=== PATIENT | female | born 1995 | race Caucasian/White ===

== ENCOUNTER 2023-02-28 10:57 | Outpatient (CLI) | payer OTHER, SELFPAY ==
[2023-02-28 12:01] LABS: Basophils Percent Auto 0.3 % (0.2-1.2); Eosinophils Absolute Auto 0.1 K/mm3 (0-0.3); Eosinophils Percent Auto 0.9 % (0-4.4); Hematocrit 40.8 % (37.0-47.0); Hemoglobin 13.8 g/dL (12.0-15.0); Immature Granulocyte Absolute 0.02 K/mm3 (0.00-0.031); Immature Granulocyte Percent A 0.2 % (0-0.5); Lymphocytes Absolute Auto 2.83 K/mm3 (0.9-3.2); Lymphocytes Percent Auto 30.7 % (18.3-44.2); Mean Corpuscular HGB Conc 33.8 g/dl (32-36); Mean Corpuscular Hemoglobin 30.6 pg (26-34); Mean Corpuscular Volume 90.5 fl (80-100); Mean Platelet Volume 11.1 fl (7.4-10.4); Monocytes Absolute Auto 0.5 K/mm3 (0.1-0.6); Neutrophils Absolute Auto 5.8 K/mm3 (1.3-6.7); Neutrophils Percent Auto 62.9 % (45.5-73.1); Platelet Count Result 334 k/mm3 (150-375); Red Blood Count 4.51 M/mm3 (4.2-5.4); Red Cell Distribution Width 12.6 % (11.5-14.5); White Blood Count 9.2 K/mm3 (4.5-10.0)
[2023-02-28 12:40] LABS: HIV 1/2 Ab P24 Ag Result Negative (Negative)
[2023-02-28 12:50] LABS: Hepatitis B Surface Antigen Negative (Negative); Rubella IgG Antibody 4.5 IU/ML
[2023-03-01 07:24] LABS: Rapid Plasma Reagin Non-Reactive (NonReactive)
[2023-03-04 10:51] LABS: CMV IgG Antibody <0.60 U/mL (<0.60)
== END 2023-02-28 10:58 | disposition home or self-care (01) ==
LOC: ANHLAB 10:59
PROVIDERS: PCP Internal Medicine; Visit Provider Student in an Organized Health Care Education/Training Program
DX: N94.89 Other specified conditions associated with female genital organs and menstrual cycle (principal)
CPT/HCPCS: 36415; 84702; 85025; 86592; 86644; 86703; 86747; 86762; 86787; 86850; 86900; 86901; 87086; 87088; 87340; G0432

== ENCOUNTER 2023-04-30 08:39 | Outpatient (NON) | payer OTHER, SELFPAY ==
[2023-04-30 09:15] LABS: Total Protein Urine 24 Hr 280 mg/24hr (28-141); Total Protein Urine Random 14 mg/dL; Total Volume 24 Hour Urine 2000 ml
== END 2023-04-30 08:40 | disposition home or self-care (01) ==
LOC: ANHLAB 08:40
PROVIDERS: PCP Internal Medicine; Visit Provider Obstetrics & Gynecology
DX: O13.9 Gestational [pregnancy-induced] hypertension without significant proteinuria, unspecified trimester (principal); Z3A.00 Weeks of gestation of pregnancy not specified
CPT/HCPCS: 81050; 84156

== ENCOUNTER 2023-07-31 09:48 | Outpatient (CLI) | payer OTHER, SELFPAY ==
[2023-07-31 11:33] LABS: Basophils Percent Auto 0.2 % (0.2-1.2); Eosinophils Absolute Auto 0.1 K/mm3 (0-0.3); Eosinophils Percent Auto 0.8 % (0-4.4); Hematocrit 38.8 % (37.0-47.0); Hemoglobin 13.1 g/dL (12.0-15.0); Immature Granulocyte Absolute 0.03 K/mm3 (0.00-0.031); Immature Granulocyte Percent A 0.2 % (0-0.5); Lymphocytes Absolute Auto 3.07 K/mm3 (0.9-3.2); Lymphocytes Percent Auto 23.8 % (18.3-44.2); Mean Corpuscular HGB Conc 33.8 g/dl (32-36); Mean Corpuscular Hemoglobin 29.8 pg (26-34); Mean Corpuscular Volume 88.4 fl (80-100); Mean Platelet Volume 11.1 fl (7.4-10.4); Monocytes Absolute Auto 0.5 K/mm3 (0.1-0.6); Monocytes Percent Auto 3.6 % (2.6-8.5); Neutrophils Absolute Auto 9.2 K/mm3 (1.3-6.7); Neutrophils Percent Auto 71.4 % (45.5-73.1); Platelet Count Result 332 k/mm3 (150-375); Red Blood Count 4.39 M/mm3 (4.2-5.4); Red Cell Distribution Width 13.8 % (11.5-14.5); White Blood Count 12.9 K/mm3 (4.5-10.0)
[2023-07-31 11:44] LABS: Glucose 1 Hour PP 50gm Dose 115 mg/dL
[2023-07-31 12:24] LABS: HIV 1/2 Ab P24 Ag Result Negative (Negative)
== END 2023-07-31 09:49 | disposition home or self-care (01) ==
PROVIDERS: PCP Internal Medicine; Visit Provider Student in an Organized Health Care Education/Training Program
DX: Z34.90 Encounter for supervision of normal pregnancy, unspecified, unspecified trimester (principal)
CPT/HCPCS: 36415; 82947; 85025; 86703; G0432

== ENCOUNTER 2023-07-31 13:12 | Outpatient (CLI) | payer OTHER, SELFPAY ==
[2023-07-31 14:00] VITALS: BP 144/82; PULSE 94
[2023-07-31 14:00] LABS: Basophils Percent Auto 0.1 % (0.2-1.2); Eosinophils Absolute Auto 0.1 K/mm3 (0-0.3); Eosinophils Percent Auto 0.5 % (0-4.4); Hematocrit 38.3 % (37.0-47.0); Hemoglobin 12.8 g/dL (12.0-15.0); Immature Granulocyte Absolute 0.05 K/mm3 (0.00-0.031); Immature Granulocyte Percent A 0.4 % (0-0.5); Lymphocytes Absolute Auto 2.64 K/mm3 (0.9-3.2); Lymphocytes Percent Auto 20.5 % (18.3-44.2); Mean Corpuscular HGB Conc 33.4 g/dl (32-36); Mean Corpuscular Hemoglobin 29.8 pg (26-34); Mean Corpuscular Volume 89.1 fl (80-100); Monocytes Absolute Auto 0.4 K/mm3 (0.1-0.6); Monocytes Percent Auto 3.3 % (2.6-8.5); Neutrophils Absolute Auto 9.7 K/mm3 (1.3-6.7); Neutrophils Percent Auto 75.2 % (45.5-73.1); Platelet Count Result 351 k/mm3 (150-375); Red Cell Distribution Width 13.7 % (11.5-14.5); White Blood Count 12.9 K/mm3 (4.5-10.0)
[2023-07-31 14:01] LABS: Creatinine Urine 30.1 mg/dL; Total Protein Urine Random 12 mg/dL
[2023-07-31 14:12] LABS: Alanine Aminotransferase 20 U/L (6-35); Albumin Level 3.8 g/dL (3.5-5.1); Alkaline Phosphatase 87 U/L (38-126); Anion Gap 7 mmol/L (8-16); Aspartate Amino Transferase 24 U/L (14-36); Bilirubin,Total 0.3 mg/dL (0.2-1.3); Blood Urea Nitrogen 8 mg/dL (7-17); Calcium 9.3 mg/dL (8.4-10.2); Carbon Dioxide 20 mmol/L (22-30); Chloride 107 mmol/L (98-107); Estimated Glomerular Filt Rate > 60; Glucose 103 mg/dL (65-110); Potassium 4.1 mmol/L (3.4-5.0); Sodium 134 mmol/L (137-145)
[2023-07-31 14:15] VITALS: BP 143/81; PULSE 90
[2023-07-31 14:17] LABS: Appearance Urine Clear (Clear); Bacteria Urine None Seen /hpf; Bilirubin Urine Negative (Negative); Blood Urine Negative (Negative); Color Urine Yellow (Yellow); Glucose Urine UA Negative (Negative); Ketones Urine Negative (Negative); Leukocyte Esterase Ur Trace LEU/UL (Negative); Need Manual Microscopic Reviewed; Nitrate Urine Negative (Negative); Non Pathogenic Casts 0-2; Protein Urine Negative (Negative); RBC Urine 0-2 /hpf (0-2); Specific Grav Ur 1.005 (1.001-1.035); Squamous Epithelial Cell Urine Few /hpf (Few); Urobilinogen Urine 0.2 mg/dL (<2.0); WBC Urine 0-5 /hpf (0-3)
[2023-07-31 14:31] VITALS: BP 139/78; PULSE 87
[2023-07-31 14:34] LABS: Add Urine Microscopic? YES
[2023-07-31 14:45] VITALS: BP 144/82; PULSE 90
[2023-07-31 15:01] VITALS: BP 144/80; PULSE 85
[2023-07-31 15:10] VITALS: BP 144/82; PULSE 93; BMI 35.6
== END 2023-07-31 15:12 | disposition home or self-care (01) ==
LOC: ANHOBOP 13:30 → ANHOBPP 13:32
PROVIDERS: PCP Internal Medicine; Visit Provider Student in an Organized Health Care Education/Training Program
DX: O13.9 Gestational [pregnancy-induced] hypertension without significant proteinuria, unspecified trimester (principal)
CPT/HCPCS: 36415; 59025; 80053; 81050; 82570; 82947; 84156; 84550; 85025; 86703; 99199; G0432

== ENCOUNTER 2023-08-01 17:00 | Outpatient (CLI) | payer OTHER, SELFPAY ==
[2023-08-01 18:17] LABS: Total Volume 24 Hour Urine 2300 ml
[2023-08-01 18:18] LABS: Total Protein Urine 24 Hr 253 mg/24hr (28-141); Total Protein Urine Random 11 mg/dL
== END 2023-08-01 17:01 | disposition home or self-care (01) ==
LOC: ANHLAB 17:05
PROVIDERS: PCP Internal Medicine; Visit Provider Student in an Organized Health Care Education/Training Program
DX: O13.9 Gestational [pregnancy-induced] hypertension without significant proteinuria, unspecified trimester (principal); Z3A.00 Weeks of gestation of pregnancy not specified
CPT/HCPCS: 81050; 84156

== ENCOUNTER 2023-08-16 14:17 | Observation (INO) | payer OTHER, SELFPAY ==
[2023-08-16] VITALS (34 sets, daily range): BP systolic 95–190; BP diastolic 49–122; PULSE 65–102; RESP 20; TEMP 36.9; O2SAT 96–100; BMI 38.0
--- NOTE | 2023-08-16 14:43 | PM.IMHP ---
H&P: HPI History of Present Illness Date/Time: 08/16/23 14:43 Chief Complaint: super-imposed preeclampsia with severe features Narrative: 28-year-old G1 at 30 weeks 6 days who presents for testing. Patient found to have severe range blood pressures. Patient's is complicated by chronic hypertension on nifedipine. Patient recently ruled in for superimposed preeclampsia by urine protein creatinine ratio. Patient denies any other preeclampsia symptoms. Patient noted to have 2 severe blood pressures during NST today. She reports good movement. Denies any scotoma, right upper quadrant pain, change in swelling. Review of Systems Cardiovascular: Cardiovascular: Denies chest pain, Denies leg edema, Denies palpitations, Denies dyspnea and Denies dyspnea on exertion Respiratory: Respiratory: Denies cough, Denies dyspnea and Denies dyspnea on exertion Gastrointestinal: Gastrointestinal: Denies abdominal pain, Denies constipation, Denies diarrhea, Denies nausea and Denies vomiting Genitourinary: Genitourinary: Denies hematuria, Denies urinary frequency, Denies dysuria, Denies pelvic pain, Denies urinary incontinence and Denies vaginal discharge Neurologic: Reports system reviewed and no additional complaints, except as documented Psychiatric: Psychiatric: Reports no additional psychiatric complaints Endocrine: Endocrine: Denies palpitations PMFSH Past Medical History Medical History Gestational hypertension Suppression of menses Surgical History Surgical History H/O wisdom tooth extraction Family History Family History Grandparent Colon polyp Mother Thyroid disease Social History Social History Smoking status: Never smoker Alcohol intake: former Substance use: never Occupation/Education: occupation Sexual Orientation (if Verbalized by the Patient): Straight or Heterosexual Meds Home Medications and Allergies Home Medications Medication Instructions Recorded Confirmed Type vit no.95-ferrous tablet PO 02/26/23 08/14/23 History fumarate 28 mg-folic acid 800 mcg tablet () aspirin 81 mg tablet,delayed 81 mg PO DAILY 04/23/23 08/14/23 History release (Adult Low Dose Aspirin) nifedipine 90 mg tablet,extended 90 mg PO DAILY #30 tabs 08/14/23 08/14/23 Rx release Allergies Allergy/AdvReac Type Severity Reaction Status Date / Time Penicillins Allergy Mild Hives Verified 08/14/23 13:27 Exam Const: General: no acute distress Eyes: EOM: EOMs intact bilaterally Neck: Neck: supple Thyroid: thyroid normal Chest: Breast/axilla inspection: normal inspection of the breasts Breast/axilla palpation: normal palpation of the breasts, normal palpation of the axillae and no axillary lymphadenopathy Resp: Effort & Inspection: normal respiratory effort Auscultation: clear to auscultation bilaterally Cardio: Rate: regular rate Rhythm: regular rhythm GI: Inspection: non-distended and other (Gravid) GI Palp: Yes Soft to palpation, No Tenderness to palpation present (GI) and No Guarding due to palpation present (GI) Auscultation: normal bowel sounds : Speculum Exam - Vagina: No vaginal bleeding OB/external & speculum: external exam normal; No vaginal bleeding Skin: General skin exam: normal color and no rashes or lesions noted Neuro: Cognition (Neuro): normal cognition Speech: normal speech Extrem: General: normal to inspection Psych: Mental Status: mental status grossly normal Affect: normal affect Assessment and Plan Assessment and plan (1) Supervision of high risk , unspecified, third trimester: Code(s): O09.93 - Supervision of high risk , unspecified, third trimester Status: Acute
[2023-08-16] MEDS: LABETALOL HCL INJ 100 MG/20 ML VIAL 20 MG IV PUSH (15:21)
[2023-08-16 15:31] LABS: Basophils Percent Auto 0.3 % (0.2-1.2); Eosinophils Absolute Auto 0.1 K/mm3 (0-0.3); Eosinophils Percent Auto 0.8 % (0-4.4); Hematocrit 38.2 % (37.0-47.0); Hemoglobin 12.8 g/dL (12.0-15.0); Immature Granulocyte Absolute 0.04 K/mm3 (0.00-0.031); Immature Granulocyte Percent A 0.3 % (0-0.5); Immature Platelet Fraction Pct 8.4 % (0.9-11.2); Lymphocytes Absolute Auto 3.56 K/mm3 (0.9-3.2); Mean Corpuscular HGB Conc 33.5 g/dl (32-36); Mean Corpuscular Hemoglobin 29.7 pg (26-34); Mean Corpuscular Volume 88.6 fl (80-100); Mean Platelet Volume 11.9 fl (7.4-10.4); Monocytes Absolute Auto 0.5 K/mm3 (0.1-0.6); Monocytes Percent Auto 3.7 % (2.6-8.5); Neutrophils Absolute Auto 9.4 K/mm3 (1.3-6.7); Neutrophils Percent Auto 68.9 % (45.5-73.1); Platelet Count Result 267 k/mm3 (150-375); Red Blood Count 4.31 M/mm3 (4.2-5.4); Red Cell Distribution Width 13.8 % (11.5-14.5); White Blood Count 13.7 K/mm3 (4.5-10.0)
[2023-08-16] MEDS: BETAMETHASONE SOD PHOS/ACETATE 30 MG/5 ML VIAL 12 MG IM (15:33)
[2023-08-16] MEDS: LABETALOL HCL INJ 100 MG/20 ML VIAL 40 MG IV PUSH (15:34)
[2023-08-16 15:40] LABS: Alanine Aminotransferase 19 U/L (6-35); Albumin Level 3.7 g/dL (3.5-5.1); Alkaline Phosphatase 104 U/L (38-126); Anion Gap 7 mmol/L (4-12); Aspartate Amino Transferase 26 U/L (14-36); Bilirubin,Total 0.3 mg/dL (0.2-1.3); Blood Urea Nitrogen 8 mg/dL (7-17); Calcium 9.8 mg/dL (8.4-10.2); Carbon Dioxide 21 mmol/L (22-30); Chloride 105 mmol/L (98-107); Estimated Glomerular Filt Rate > 60; Glucose 96 mg/dL (65-110); Potassium 3.7 mmol/L (3.4-5.0); Sodium 133 mmol/L (137-145); Uric Acid 6.4 mg/dL (2.5-7.5)
[2023-08-16 15:41] LABS: Creatinine Urine 59.4 mg/dL; Total Protein Urine Random 22 mg/dL; Ur Ttl Prot Creatinine Ratio 0.37 mg/mg (0-0.20)
--- NOTE | 2023-08-16 15:41 | OBADM ---
This patient, Daly Chand, admitted to the OB room OB Post 117 for observation. Patient/family oriented to hospital policies and general routines including ID bracelet, bed and alarms, visiting hours, pain management, procedures, bathroom and other care routines, personal items, smoking policy, room service/diet, and visiting hours. Patient/Family are encouraged to report perceived risks to care and to ask questions if they do not understand what they are told or what they should do.
[2023-08-16 15:49] LABS: Platelet Estimate Adequate (Adequate); Schistocytes None Seen
[2023-08-16] MEDS: LABETALOL HCL INJ 100 MG/20 ML VIAL 80 MG IV PUSH (15:58)
[2023-08-16] MEDS: LACTATED RINGERS 1,000 ML 75 ML IV CONT (16:15)
[2023-08-16] MEDS: MAGNESIUM SULF 6 GM/WATER150ML 6 GM/150 ML BAG IVPB (16:17)
[2023-08-16] MEDS: hydrALAZINE HCL 20 MG/ML VIAL 10 MG IV PUSH (16:28)
[2023-08-16] MEDS: MAGNESIUM SULF 20GM/WATER500ML 500 ML 50 MG IV CONT (16:53)
--- NOTE | 2023-08-16 17:20 | PC.NURSE ---
[place]'s transport nurse Barney Leal and transport team here, assumed care of patient at this time.
--- NOTE | 2023-08-16 17:34 | PC.NURSE ---
Contractions from 1444 to 1500 are irregular, occasional, and not picking up per TOCO monitor. Contractions from 1500 to 1600 are irregular and occasional. Contractions from 6088-3120: Contraction frequency is 1-9 minutes. Contraction duration is 30-60 seconds. Contractions from 1700- 1712: Contraction frequency is 1-3 minutes. Contraction duration is 40-60 seconds. Contractions from 1307-7441: None picking up per TOCO.
--- NOTE | 2023-08-17 13:37 | PM.TDS ---
Transfer Discharge Sum: Prov Provider Date of admission: 08/16/23 14:17 Primary care physician: Sylvester Alexis, Admitting clinician: Tyrone De Leon MD Attending physician on admission: Tyrone De Leon Attending physician on discharge: Tyrone De Leon Anticipated date of transfer: 08/16/23 Receiving physician/facility: Dr. Landeros [facility] DS: Admitting Diagnosis Discharge Date 08/16/23 Admitting Diagnosis superimposed preeclampsia with severe features intrauterine DS: Discharge Diagnosis Discharge Diagnosis (1) Chronic hypertension affecting : Code(s): O10.919 - Unspecified pre-existing hypertension complicating , unspecified trimester Status: Acute (2) Supervision of high risk , unspecified, third trimester: Code(s): O09.93 - Supervision of high risk , unspecified, third trimester Status: Acute (3) Pre-eclampsia superimposed on chronic hypertension, antepartum: Code(s): O11.9 - Pre-existing hypertension with pre-eclampsia, unspecified trimester Status: Acute Transfer Discharge Sum: Med Medications Active and Home Medications: Home Medications vit no.95-ferrous fumarate 28 mg-folic acid 800 mcg tablet () 1 tablet PO DAILY 02/26/23 [History Confirmed 08/16/23] aspirin 81 mg tablet,delayed release (Adult Low Dose Aspirin) 162 mg PO DAILY 04/23/23 [History Confirmed 08/16/23] nifedipine 90 mg tablet,extended release 90 mg PO DAILY #30 tabs 08/14/23 [Rx Confirmed 08/16/23] Transfer Discharge Sum: Hosp Hospital Course Hospital course: Daly Chand is a 28 year old female Time Spent with Patient Time attestation: Total time spent providing and/or coordinating transfer services: Total time spent: Less than 30 minutes Exam Const: General: comfortable and no acute distress Resp: Effort & Inspection: normal respiratory effort Auscultation: clear to auscultation bilaterally Cardio: Rate: regular rate Rhythm: regular rhythm GI: GI Palp: Yes Soft to palpation and No Tenderness to palpation present (GI) Neuro: General: gait normal Speech: normal speech Extrem: General: normal to inspection Psych: Mental Status: mental status grossly normal Affect: normal affect DS: Data Data Completed and Pending Labs on day of discharge: Labs from last 24 hours 08/16/23 08/16/23 08/16/23 15:11 15:11 15:11 WBC RBC Hgb Hct MCV MCH MCHC RDW Plt Count MPV Immature Gran % (Auto) Neut % (Auto) Lymph % (Auto) Mcintosh % (Auto) Eos % (Auto) Baso % (Auto) Lymph # (Auto) Mcintosh # (Auto) Eos # (Auto) Baso # (Auto) Abs Immat Gran (auto) Absolute Neuts (auto) Absolute Nucleated RBC Nucleated RBC % Platelet Estimate % Immature Plt Fraction Schistocytes Sodium Potassium Chloride Carbon Dioxide Anion Gap BUN Creatinine Estim Creat Clear Calc Estimated GFR Glucose Uric Acid Calcium Total Bilirubin AST ALT Alkaline Phosphatase Cancelled Total Protein Cancelled 7.0 Albumin Cancelled 3.7 U Random Total Protein 22 Urine Creatinine 59.4 Protein/Creat Ratio 2 0.37 H 08/16/23 08/16/23 08/16/23 15:11 15:11 15:11 WBC RBC Hgb Hct MCV MCH MCHC RDW Plt Count MPV Immature Gran % (Auto) Neut % (Auto) Lymph % (Auto) Mcintosh % (Auto) Eos % (Auto) Baso % (Auto) Lymph # (Auto) Mcintosh # (Auto) Eos # (Auto) Baso # (Auto) Abs Immat Gran (auto) Absolute Neuts (auto) Absolute Nucleated RBC Nucleated RBC % Platelet Estimate % Immature Plt Fraction Schistocytes Sodium Potassium Chloride Carbon Dioxide Anion Gap BUN Creatinine Estim Creat Clear Calc Estimated GFR Glucose Uric Acid Calcium Total Bilirubin
== END 2023-08-16 18:00 | disposition short-term general hospital (02) ==
PROVIDERS: Admitting Provider Student in an Organized Health Care Education/Training Program; PCP Internal Medicine; Visit Provider Student in an Organized Health Care Education/Training Program
DX: O09.93 Supervision of high risk pregnancy, unspecified, third trimester (principal); O11.3 Pre-existing hypertension with pre-eclampsia, third trimester; O10.013 Pre-existing essential hypertension complicating pregnancy, third trimester; Z3A.30 30 weeks gestation of pregnancy; Z79.82 Long term (current) use of aspirin; Z79.899 Other long term (current) drug therapy
CPT/HCPCS: 36415; 80053; 82570; 84156; 84550; 85025; 85055; 96372; 96374; 96375; 96376; G0378; G0379; J0360; J0702; J3475; J7120

== ENCOUNTER 2023-10-17 12:34 | Outpatient (CLI) | payer OTHER, SELFPAY ==
[2023-10-17 14:26] LABS: Beta HCG Quantitative < 2.39 mIU/ML
== END 2023-10-17 12:35 | disposition home or self-care (01) ==
LOC: ANHLAB 12:35
PROVIDERS: PCP Internal Medicine; Visit Provider Student in an Organized Health Care Education/Training Program
DX: N94.89 Other specified conditions associated with female genital organs and menstrual cycle (principal)
CPT/HCPCS: 36415; 84702

== ENCOUNTER 2024-11-20 10:30 | Outpatient (CLI) | payer OTHER, SELFPAY ==
--- OUTSIDE RECORDS SUMMARY | 2024-11-20 10:37 | XMS_ITS | Clinical Summary ---
Author Organization [facility] Address [address] [place] [id number] Care Team Providers Care Case Operator Name Role Phone Sylvester Alexis MD Primary Care Provider [phone] Allergies Active Allergy Reactions Criticality Noted Date Comments Penicillins Hives 05/08/2005 Medications loratadine (CLARITIN) 10 MG tablet Take 1 tablet (10 mg total) by mouth daily as needed for Allergies. Active NIFEdipine ER (ADALAT CC) 60 MG 24 hr tabletIndications :Chronic hypertension in obstetric context in first trimester (HHS/HCC) Take 1 tablet (60 mg total) by mouth daily. 90 tablet 1 3 Active 28-0.8 MG tablet Take 1 tablet by mouth daily. Active nitrofurantoin, macrocrystal-mono hydrate, (MACROBID) 100 MG capsuleIndication s:Acute cystitis without hematuria Take 1 capsule (100 mg total) by mouth 2 (two) times daily for 7 days. 14 capsule 5 10/29/19 25 Active Problems Problem Noted Date Diagnosed Date Elevated blood pressure read ing in office with diagnosis of hypertension 10/21/2024 Hypertension 02/14/2023 Overview (02/14/2023): Have not been on medication since 2018 Encounters Date Type Department Care Team Description 10/30/[address] [facility] Mult[facility]ialty Care - [address] [place] [address] Sylvester Alexis MD Follow Up Call 10/30/2024 Travel 10/21/2024 1:20 PM CDT Office Visit [place] [address] [address] [facility] [address] [place] [address] Sylvester Alexis MD Follow Up (Acute ); Urinary Problem (Thinks it may be a UTI since Sunday symptoms have been getting worse. Low back pain, uncomfortable when urinating, frequent urination ); Blood Pressure 10/21/2024 - 10/21/2024 11:59 PM CDT Hospital Encounter [facility] [address] Sylvester Alexis MD Discharge Disposition: Home or Self Care (Routine Discharge) 10/21/2024 Results Follow-Up [place] [address] [place] [address] [address] [place] [address] Sylvester Alexis MD URINALYSIS AUTO DIP, URINE BACTERIA CULTURE 10/21/2024 Travel 10/16/2024 MyChart Message Enc [place] [address] [address] [facility] [address] [place] [address] Sylvester Alexis MD Possible UTI from Last 3 Months Immunizations Immunization Administration Dates Next Due Fluzone (IIV3, Trivalent, 0.5 ML Prefilled Syrin ge) 04/15/2024 Influenza Adult (Generic) 04/24/2023 Tdap (Generic) 08/22/2023 Family History Medical History Relation Comments Cancer Maternal Grandfather Colon Relation Status Comments Maternal Grandfather Social History Tobacco Use Types Packs/Day Years Used Date Smoking Tobacco: Never Smokeless Tobacco: Never Tobacco Cessation:Counseling Given: Yes Comments:Counseled by Dr. Alexis. Alcohol Use Standard Drinks/Week Comments Yes 3.7 (1 standard drink = 0.6 oz p ure alcohol) PHQ-2 Answer Date Recorded Patient Health Questionnaire-2 Score 0 04/15/2024 Comments No Sex and Gender Information Value Date Recorded Sex Assigned at Female 2023 6:18 AM CDT Legal Sex Female 8:46 AM CDT Gender Identity Female 2023 6:18 AM CDT Sexual Orientation Straight 10/21/2024 1: 14 PM CDT Last Filed Vital Signs Vital Sign Reading Time Taken Comments Blood Pressure 140/88 10/30/2024 5:08 PM CDT Pulse 112 10/21/2024 1:14 PM CDT Temperature 36.6 C (97.9 F) 10/21/2024 1:14 PM CDT Respiratory Rate 18 10/21/2024 1:14 PM CDT Oxygen Saturation 100% 10/21/2024 1:14 PM CDT Inhaled Oxygen Concentration - - Weight 101.3 kg (223 lb 6.4 oz) 10/21/2024 1:14 PM CDT Height 167.6 cm (5' 6) 10/21/2024 1:14 PM CDT Body Mass Index 36.06 10/21/2024 1:14 PM CDT Plan of Treatment Upcoming Encounters Date Type Department Care Team (Late st Contact Info) Description 04/21/2025 7:00 AM TELEPHONE PLANT POWER OPERATOR Office Visit [facility] Mult[facility]pec[facility] Care - [place] [address] [address] [place], [place] [id number] Sylvester Alexis MD [address] [place] [address] [id number] Health Maintenance Due Date Last Done Comments Cervical Cancer Screening Pa p Smear (Age 21 to 29) Every 3 Years 1995 Cervical Cancer Screening 1995 Hepatitis B Vaccines (1 of 3 - 19+ 3-dose series) 2014 COVID-19 Vaccine ( - 2023-2 5 season) 2024 PHQ-2 (Physician [place]) 05/21/2024 04/15/2024 Annual Physical 04/15/2025 04/15/2024, 02/14/2023 DTaP, Tdap and Td Vaccines ( 2 - Td or Tdap) 08/21/2033 08/22/2023 Hepatitis C Completed 02/14/2023 HPV Vaccines Aged Out No longer eligi ble based on patient's age to complete this topic Meningococcal B Vaccine Aged Out No l onger eligible based on patient's age to complete this topic Meningococcal Vaccine Aged Out No rosario missy eligible based on patient's age to complete this topic Pneumococcal Vaccine: Pediatrics (0 to 5 Years) and At-Risk Patients (6 to 49 Years) Aged Out No longer eligible b ased on patient's age to complete this topic RSV Immunizations Under 20 Months Aged Out No longer eligible b ased on patient's age to complete this topic Procedures Procedure Name Priority Date/Time Associated Diagnosis Comments URINE BACTERIA CULTURE Routine 10/21/2024 1:24 PM CDT Dysuria URINALYSIS AUTO DIP Routine 10/21/2024 Dysuria HEPATITIS C ANTIBODY Routine 02/14/2023 10:14 AM CDT Annual physical exam General medical exam Establishing care with new doctor, encounter for Encounter for hepatitis C screening test for low risk patient from Last 3 Months or Most Recently Relevant to Health Maintenance Results * (ABNORMAL) URINE BACTERIA CULTURE (10/21/2024 1:24 PM CDT) SPEC DESCRIPTION URINE CLEAN CATCH 10/21/2024 1:24 PM CDT [facility] SPECIAL REQUESTS NO SPECIAL REQUEST 10/21/2024 1:24 PM CDT [facility] CULTURE RESULT EQUAL OR >100,000 CFU/mL ESCHERICHIA COLI, EXTENDED SPECTRUM BETA LACTAMASE TELEGRAPH INSTALLER (A) 10/25/2024 6:25 AM CDT [facility] URINE SPECIMEN OBTAINED BY CLEAN CATCH PROCEDURE / Unknown 10/21/2024 1:24 PM CDT 10/21/2024 8:50 PM CDT Narrative Organism Antibiotic Method Susceptibility Escherichia coli, extended spectrum beta lactamase international editorial producer FOSFOMYCIN PEEWEE (KB) Sensitive Escherichia coli, extended spectrum beta lactamase international editorial producer AMPICILLIN PEEWEE (VITEK) Resistant Escherichia coli, extended spectrum beta lactamase international editorial producer AMOXICILLIN/CLAVULANIC A PEEWEE (VITEK) INTERMEDIATE: Intermediate Escherichia coli, extended spectrum beta lactamase international editorial producer AZTREONAM PEEWEE (VITEK) Resistant Escherichia coli, extended spectrum beta lactamase international editorial producer CEFEPIME PEEWEE (VITEK) INTERMEDIATE: Intermediate Escherichia coli, extended spectrum beta lactamase international editorial producer CEFTRIAXONE PEEWEE (VITEK) Resistant Escherichia coli, extended spectrum beta lactamase international editorial producer CEFAZOLIN PEEWEE (VITEK) Resistant Escherichia coli, extended spectrum beta lactamase international editorial producer CIPROFLOXACIN PEEWEE (VITEK) Resistant Escherichia coli, extended spectrum beta lactamase international editorial producer ESBL PEEWEE (VITEK) POS: Resistant Escherichia coli, extended spectrum beta lactamase international editorial producer ERTAPENEM PEEWEE (VITEK) Sensitive Escherichia coli, extended spectrum beta lactamase international editorial producer NITROFURANTOIN PEEWEE (VITEK) Sensitive Escherichia coli, extended spectrum beta lactamase international editorial producer GENTAMICIN PEEWEE (VITEK) Resistant Escherichia coli, extended spectrum beta lactamase international editorial producer IMIPENEM PEEWEE (VITEK) Sensitive Escherichia coli, extended spectrum beta lactamase international editorial producer LEVOFLOXACIN PEEWEE (VITEK) Resistant Escherichia coli, extended spectrum beta lactamase international editorial producer MEROPENEM PEEWEE (VITEK) Sensitive Escherichia coli, extended spectrum beta lactamase international editorial producer PIPRACIL/TAZO PEEWEE (VITEK) Sensitive Escherichia coli, extended spectrum beta lactamase international editorial producer TRIMETH-SULFAMETH. PEEWEE (VITEK) Sensitive Escherichia coli, extended spectrum beta lactamase international editorial producer TETRACYCLINE PEEWEE (VITEK) Resistant Sylvester Alexis MD MICROBIOLOGY - GENERAL ORDERABLE S Final Result [facility] [address] [place] [address], [id number] * (ABNORMAL) URINALYSIS AUTO DIP (10/21/2024) COLOR (U) YELLOW YELLOW MG[address] [place] TRANSPARENCY CLEAR CLEAR MG-[address] [place] GLUCOSE (U) NEGATIVE NEGATIVE MG/DL [id number] [place] BILIRUBIN (U) NEGATIVE NEGATIVE MG-[address] [place] KETONES MG/DL (U) NEGATIVE NEGATIVE MG/DL [id number] [place] SPECIFIC GRAVITY (U) 1.015 1.001 - 1.035 MG-[address] [place] BLOOD (U) MODERATE (Non Hemolyzed, Intact, About 50 rbc/uL)(A) NEGATIVE MG-[address] [place] U PH 6.5 5.0 - 9.0 MG-[address] [place] PROTEIN (U) 1+ (30)(A) NEGATIVE mg/dL MG-[address] [place] UROBILINOGEN 0.2 0.2 - 1.0 EU/dL = mg/dL MG-[address] [place] NITRITES NEGATIVE NEGATIVE MG/DL MG-[address] [place] LEUKOCYTES (U) 3+ (LARGE)(A) NEGATIVE MG-[address] [place] URINE SPECIMEN OBTAINED BY CLEAN CATCH PROCEDURE / Unknown 10/21/2024 us Sylvester lAexis MD URINE ORDERABLES Final Result Performing Organization Address City/[facility]/ZIP Co de Phone Number MG-[address] [place] [address] [place] [address], [place] [phone] * HEPATITIS C ANTIBODY (02/14/2023 10:14 AM CDT) HEPATITIS C AB NON-REACTI VE NON-REACT ANTONY 02/14/2023 7:38 PM CDT [facility] Comment: ANTIBODIES TO HCV NOT DETECTED. DOES NOT EXCLUDE THE POSSIBILITY OF EXPOSURE TO HCV. 02/14/2023 10:1 4 AM CDT Sylvester Alexis MD LABORATORY Final Result Performing Organization Address City/[facility]/ZIP Co de Phone Number [facility] [address] [place] [address], [place] [phone] from Last 3 Months or Most Recently Relevant to Health Maintenance Additional Health Concerns Infection Onset Date Last Indicated ESBL - Extended Spectrum Beta-lactamase 10/22/19 25 10/21/2024 Insurance Care Teams Case Operator Relationship Specialty Start Date End Date Sylvester Alexis MD [address] [address] PCP - General INTERNAL MEDICINE 02/14/23
--- OUTSIDE RECORDS SUMMARY | 2024-11-20 10:37 | XMS_ITS | Encounter Summary ---
Author Organization [facility] Address [address] [place] [address] Care Team Providers Care Transmission And Protection Engineer Name Role Phone Sylvester Alexis MD Primary Care Provider [phone] Reason for Visit * Reason Onset Date Comments Appointment Request 10/16/2024 Encounter Details Date Type Department Care Team (Late st Contact Info) Description 10/16/2024 [place] [employer] Message Enc [facility] Mult[facility]pec[facility] Care - [place] [address] [place] [address] [address] [place] [address] [place] [address] [place] [address] [address] [place] [address] Possible UTI Social History Tobacco Use Types Packs/Day Years Used Date Smoking Tobacco: Never Smokeless Tobacco: Never Comments:Counseled by Dr. Beth rock. Alcohol Use Standard Drinks/Week Comments Yes 3.7 [...] Orientation Straight 10/21/2024 1: 14 PM CDT documented as of this encounter Progress Notes * Michelle Peres MA - 10/17/2024 7:11 AM CDT Pt declined acute appointment. documented in this encounter Plan of Treatment Upcoming Encounters Date Type Department Care Team (Late st Contact Info) Description 04/21/2025 7:00 AM PAINT STOCK CLERK Office Visit [facility] Mult[facility]pec[facility]ty [facility] [place] [address] [address] [place] [address] Sylvester Alexis MD [address] [place] [id number] documented as of this encounter Visit Diagnoses Not on filedocumented in this encounter Additional Health Concerns Infection Onset Date Last Indicated Resolved Time ESBL - Extended Spectrum Beta-lactamase 10/21/2024 0 10/21/2024 Assessment Noted Time PHQ-9 Depression Total Score: 1 04/15/20 24 9:39 AM PAINT STOCK CLERK documented as of this encounter Care Teams Transmission And Protection Engineer Relationship Specialty Start Date End Date Sylvester Alexis MD [address] [place] [id number] PCP - General INTERNAL MEDICINE 02/14/23 documented as of this encounter
--- OUTSIDE RECORDS SUMMARY | 2024-11-20 10:37 | XMS_ITS | Clinical Summary ---
Author Organization [facility] Address [address] [place] [address] Care Team Providers Care Beveler Name Role Phone Unavailable Primary Care Provider Unavailabl e Source Comments [facility],non-owned Affiliates and Associated Physician Practices is amultiple site organization consisting of ambulatory clinics and hospital sitesin [place], [place]. This disclosure is being madepursuant to the Care Everywhere program and may not contain all information available regarding this patient. Last updated 18.[facility] Allergies Active Allergy Reactions Criticality Noted Date Comments Penicillins Unknown 05/04/2023 Medications * Be aware that medications may not be up to date on this document. Alwaysverify current medications with the patient. Vit-Fe Fumarate-FA ( vitamin) 28-0.8 MG tablet Take 1 (one) tablet by mouth once daily Active aspirin (Aspirin) 81 MG chew tablet Take 2 (two) tablets by mouth once daily Active NIFEdipine CR osmotic 24hr (Adalat CC) 60 MG tablet Take 1 (one) tablet by mouth 2 times daily 60 tablet 2 4 Active ferrous sulfate 325 (65 FE) MG tablet Take 1 (one) tablet by mouth once daily after lunch 30 tablet 4 Active labetalol (Normodyne; Trandate) 200 MG tablet Take 2 (two) tablets by mouth 2 times daily 120 tablet 1 4 Active Additional Information Patient taking differently: 200 mgOral 2 TIMES DAILY, Reported on 10/01/2023 oxyCODONE, immediate release, (Roxicodone) 5 MG tabletIndicatio ns: delivery delivered (HCC) Take 1 (one) tablet by mouth every 6 hours as needed for Pain 12 tablet 4 Active Additional Information Patient not taking.Reported on 09/17/2023 docusate sodium (Colace) 100 MG capsule Take 1 (one) capsule by mouth once daily 30 capsule 4 Active ibuprofen (Motrin) 600 MG tablet Take 1 (one) tablet by mouth every 6 hours as needed for Pain 30 tablet 4 Active Additional Information Patient not taking.Reported on 10/01/2023 polyethylene glycol 3350 (Miralax) 17 GM/SCOOP powder Take 17 (seventeen) g by mouth once daily 238 g 4 Active acetaminophen (Tylenol) 500 MG capsule Take 2 (two) capsules by mouth every 6 hours as needed for Fever or Pain 60 capsule 4 Active ibuprofen (Motrin) 200 MG tablet Take 1 (one) tablet by mouth every 6 hours as needed for Pain Active Active Problems Problem Noted Date Diagnosed Date Primary hypertension 08/16/2023 Immunizations Immunization Administration Dates Next Due TDAP (7yrs+) 08/22/2023 Social History Tobacco Use Types Packs/Day Years Used Date Smoking Tobacco: Never Smokeless Tobacco: Never Tobacco Cessation:Counseling Given: Not Answered AUDIT-C Answer Date Recorded Q1: How often do you have a drink containing alcohol? Never 09/24/2023 Q2: How many drinks containi ng alcohol do you have on a typical day when you are drinking? Patient does not drink Q3: How often do you have si x or more drinks on one occasion? Never 09/24/2023 Overall Financial Resource Strain (CARDIA) Answe r Date Recorded How hard is it for you to pa y for the very basics like food, housing, medical care, and heating? Not hard at all 10/01/2023 [facility] [place] of Occupat ional Health - Occupational Stress Questionnaire Answer Date Recorded Do you feel stress - tense, restless, nervous, or anxious, or unable to sleep at night because your mind is troubled all the time - these days? Not at all 10/01/2023 Hunger Vital Sign Answer Date Recorded Within the past 12 months, y ou worried that your food would run out before you got the money to buy more. Never true 10/01/19 24 Within the past 12 months, t he food you bought just didn't last and you didn't have money to get more. Never true 10/01/2023 PRAPARE - Transportation Answer Date Re corded In the past 12 months, has l ack of transportation kept you from medical appointments or from getting medications? No 09/18 In the past 12 months, has l ack of transportation kept you from meetings, work, or from getting things needed for daily living? No 10/01/2023 Housing Stability Vital Sign Answer Lamberto e Recorded In the last 12 months, was t here a time when you were not able to pay the mortgage or rent on time? No 10/01/2023 In the last 12 months, how many places have you lived? 1 10/01/2023 In the last 12 months, was t here a time when you did not have a steady place to sleep or slept in a fdc (including now)? No 10/01/2023 [place] Depression Scale Answer Date Recorded [place] Depression Scale Total 2 10/01/2023 The thought of harming myself has occurred to me . Never 10/01/2023 Comments No Sex and Gender Information Value Date Recorded Sex Assigned at Not on file Legal Sex Female 9:00 AM DIRECTOR AUTOMOTIVE Gender Identity Not on file Sexual Orientation Not on file Last Filed Vital Signs Vital Sign Reading Time Taken Comments Blood Pressure 105/67 10/01/2023 10:30 AM CDT Pulse 85 10/01/2023 10:30 AM CDT Temperature 36.7 C (98 F) 09/09/2023 1:05 PM CDT Respiratory Rate 18 09/09/2023 1:05 PM CDT Oxygen Saturation 99% 09/09/2023 1:05 PM CDT Inhaled Oxygen Concentration - - Weight 96.2 kg (212 lb) 10/01/2023 10:25 AM CDT Height 167.6 cm (5' 6) 09/02/2023 5:20 PM CDT Body Mass Index 34.22 09/02/2023 5:20 PM CDT Plan of Treatment Health Maintenance Due Date Last Done Comments HIV SCREENING 2010 HEPATITIS B VACCINE (1 of 3 - 19+ 3-dose series) 2014 PAP SMEAR 02/13/2016 COVID-19 VACCINE (1 - 2023-2 5 season) 2024 DEPRESSION SCREENING 05/21/2024 INFLUENZA VACCINE (Season Ended) 2025 04/24/20 DTAP/TDAP/TD VACCINES (2 - T d or Tdap) 08/21/2033 08/22/2023 ZOSTER VACCINE (1 of 2) 2045 HEPATITIS C SCREENING Completed 02/14/2023 HIB VACCINE Aged Out No longer eligi ble based on patient's age to complete this topic HPV VACCINE Aged Out No longer eligi ble based on patient's age to complete this topic MENINGOCOCCAL (Group B) VACC INE SHARED DECISION-MAKING Aged Out No longer eligibl e based on patient's age to complete this topic MENINGOCOCCAL GROUPS A/C/Y/W VACCINE Aged Out No longer eligible b ased on patient's age to complete this topic PNEUMOCOCCAL VACCINE Aged Out No long er eligible based on patient's age to complete this topic [place] [address] [facility] Advance Directives * Full Code (Latest Code Status on File) Date Activated Date Inactivated Comments 09/05/2023 1:25 PM 09/09/2023 4:15 PM * Full Code Date Activated Date Inactivated Comments 08/16/2023 7:12 PM 09/05/2023 1:25 PM
--- OUTSIDE RECORDS SUMMARY | 2024-11-20 10:37 | XMS_ITS | Encounter Summary ---
Author Organization [facility] - [facility] Address [address] [place] [address] Care Team Providers Care Mobile Home Installer Name Role Phone Sylvester Alexis MD Primary Care Provider [phone] Encounter Details Date Type Department Care Team (Latest Contact Info) Description 10/21/2024 Results Follow-Up [facility] Multispecialty Care - [place] [address] [address] [place], [place] [id number] Sylvester Alexis MD [address] [facility] [address] [place], [place] [phone] URINALYSIS AUTO DIP, URINE BACTERIA CULTURE Social History Tobacco Use Types Packs/Day Years [...] PM CDT documented as of this encounter Plan of Treatment Upcoming Encounters Date Type Department Care Team (Late st Contact Info) Description 04/21/2025 7:00 AM MAINSPRING REVERSE WINDER Office Visit [facility] Multispecialty Care - [place] [address] [address] [place] [address] Sylvester Alexis MD [address] [address] documented as of this encounter Visit Diagnoses Not on filedocumented in this encounter Additional Health Concerns Infection Onset Date Last Indicated Resolved Time ESBL - Extended Spectrum Beta-lactamase 10/21/2024 0 10/21/2024 Assessment Noted Time PHQ-9 Depression Total Score: 1 04/15/20 24 9:39 AM MAINSPRING REVERSE WINDER documented as of this encounter Care Teams Mobile Home Installer Relationship Specialty Start Date End Date Sylvester Alexis MD [address] [place] [address] PCP - General INTERNAL MEDICINE 02/14/23 documented as of this encounter
[2024-11-20 11:26] LABS: Beta HCG Quantitative 11.36 mIU/ML
== END 2024-11-20 10:31 | disposition home or self-care (01) ==
LOC: ANHLAB 10:31
PROVIDERS: PCP Internal Medicine; Visit Provider Student in an Organized Health Care Education/Training Program
DX: N91.2 Amenorrhea, unspecified (principal)
CPT/HCPCS: 36415; 84702

== ENCOUNTER 2024-11-22 09:22 | Outpatient (CLI) | payer OTHER, SELFPAY ==
--- OUTSIDE RECORDS SUMMARY | 2024-11-22 09:27 | XMS_ITS | Encounter Summary ---
Author Organization [facility] Address [address] [place] [address] Care Team Providers Care Babcock Tester Name Role Phone Sylvester Alexis MD Primary Care Provider [phone] Reason for Visit * Reason Onset Date Comments Appointment Request 10/16/2024 Encounter Details Date Type Department Care Team (Late st Contact Info) Description 10/16/2024 [employer]ista Real Estatehart Message Enc [facility] Multispecialty Care - [place] [address] [place] [address] [address] [place] [address] [place] [address] [place] [address] [address] [place] [address] Possible UTI Social History Tobacco [...] st Contact Info) Description 04/21/2025 7:00 AM MANAGER INTEL Office Visit [facility] Multispecialty [facility] - [place] [address] [address] [place] [address] Sylvester Alexis MD [address] [place] [address] documented as of this encounter Visit Diagnoses Not on filedocumented in this encounter Additional Health Concerns Infection Onset Date Last Indicated Resolved Time ESBL - Extended Spectrum Beta-lactamase 10/21/2024 0 10/21/2024 Assessment Noted Time PHQ-9 Depression Total Score: 1 04/15/20 24 9:39 AM MANAGER INTEL documented as of this encounter Care Teams Babcock Tester Relationship Specialty Start Date End Date Sylvester Alexis MD [address] [place] [address] PCP - General INTERNAL MEDICINE 02/14/23 documented as of this encounter
--- OUTSIDE RECORDS SUMMARY | 2024-11-22 09:27 | XMS_ITS | Clinical Summary ---
Author Organization [facility] Address [address] [place] [address] Care Team Providers Care Resourcing Advisor Name Role Phone Unavailable Primary Care Provider Unavailabl e Source Comments [facility],non-owned Affiliates and Associated Physician Practices is amultiple site organization consisting of ambulatory clinics and hospital sitesin [place], [place], [place] and [place]. This disclosure is being madepursuant to the Care Everywhere program and may not contain all information available regarding this patient. Last updated 18.[facility] Allergies Active Allergy Reactions Criticality Noted Date [...] and heating? Not hard at all 10/01/2023 [facility] of Occupat ional Health - Occupational Stress [...] place to sleep or slept in a half-way (including now)? No 10/01/2023 [place] Depression Scale Answer Date Recorded [place] Depression Scale Total 2 10/01/2023 The thought of harming myself has occurred to me . Never 10/01/2023 Comments No Sex and Gender Information Value Date Recorded Sex Assigned at Not on file Legal Sex Female 9:00 AM LOCOMOTIVE SUPERVISOR Gender Identity Not on file Sexual Orientation [...] age to complete this [place] [address] [facility] Advance Directives * Full Code (Latest Code Status on File) Date Activated Date Inactivated Comments 09/05/2023 1:25 PM 09/09/2023 4:15 PM * Full Code Date Activated Date Inactivated Comments 08/16/2023 7:12 PM 09/05/2023 1:25 PM
--- OUTSIDE RECORDS SUMMARY | 2024-11-22 09:27 | XMS_ITS | Encounter Summary ---
Author Organization [facility] - [facility] Address [address] [place] [address] Care Team Providers Care Professor Of Kinesiology Name Role Phone Sylvester Alexis MD Primary Care Provider [phone] Encounter Details Date Type Department Care Team (Latest Contact Info) Description 10/21/2024 Results Follow-Up [facility] Medical Group Multispecialty Care - [place] [address] [address] [place], [place] [phone] Sylvester Alexis MD [address] [facility] [address] [place], [place] [phone] URINALYSIS AUTO DIP, URINE BACTERIA CULTURE Social [...] st Contact Info) Description 04/21/2025 7:00 AM FREEZER UNLOADER Office Visit [facility] Multispecialty Care - [place] [address] [address] [place] [address] Sylvester Alexis MD [address] [address] documented as of this encounter Visit Diagnoses Not on filedocumented in this encounter Additional Health Concerns Infection Onset Date Last Indicated Resolved Time ESBL - Extended Spectrum Beta-lactamase 10/21/2024 0 10/21/2024 Assessment Noted Time PHQ-9 Depression Total Score: 1 04/15/20 24 9:39 AM FREEZER UNLOADER documented as of this encounter Care Teams Professor Of Kinesiology Relationship Specialty Start Date End Date Sylvester Alexis MD [address] [place] [address] PCP - General INTERNAL MEDICINE 02/14/23 documented as of this encounter
--- OUTSIDE RECORDS SUMMARY | 2024-11-22 09:27 | XMS_ITS | Clinical Summary ---
Author Organization [facility] Address [address] [place] [address] Care Team Providers Care Wardrobe Image Consultant Name Role Phone Sylvester Alexis MD Primary Care Provider [phone] Allergies Active Allergy Reactions Criticality Noted Date [...] Type Department Care Team Description 10/30/2024 Telephone [facility] Multispecialty Care - [address] [place] [address] Sylvester Alexis MD Follow Up Call 10/30/2024 Travel 10/21/2024 1:20 PM CDT Office Visit [place] [address] [address] [facility] [address] [place] [address] Sylvester Alexis MD Follow Up (Acute ); Urinary Problem (Thinks it may be a UTI since Sunday symptoms have been getting worse. Low back pain, uncomfortable when urinating, frequent urination ); Blood Pressure 10/21/2024 - 10/21/2024 11:59 PM CDT Hospital Encounter [facility] [address] Sylvester Alexis MD Discharge Disposition: Home or Self Care (Routine Discharge) 10/21/2024 Results Follow-Up [place] [address] [address] [place] [address] [address] [place] [address] Sylvester Alexis MD URINALYSIS AUTO DIP, URINE BACTERIA CULTURE 10/21/2024 Travel 10/16/2024 MyChart Message Enc [place] [address] [address] [facility] [address] [place] [address] Sylvester Alexis MD Possible UTI from Last [...] st Contact Info) Description 04/21/2025 7:00 AM UNDERWEAR CUTTER Office Visit [facility] Medical Group Multispecialty Care - [place] [address] [address] [place], [place] [phone] Sylvester Alexis MD [address] [place] [phone] Health Maintenance Due Date Last Done Comments Cervical Cancer Screening Pa p Smear (Age 21 to 29) Every 3 Years 1995 Cervical Cancer Screening 1995 Hepatitis B Vaccines (1 of 3 - 19+ 3-dose series) 2014 COVID-19 Vaccine ( - 2023-2 5 season) 2024 PHQ-2 (Physician [place]) 05/21/2024 04/15/2024 Annual Physical 04/15/2025 04/15/2024, 02/14/2023 [...] URINE CLEAN CATCH 10/21/2024 1:24 PM CDT [facility] SPECIAL REQUESTS NO SPECIAL REQUEST 10/21/2024 1:24 PM CDT [facility] CULTURE RESULT EQUAL OR >100,000 CFU/mL ESCHERICHIA COLI, EXTENDED SPECTRUM BETA LACTAMASE HEDGE FUND TRADER (A) 10/25/2024 6:25 AM CDT [facility] URINE SPECIMEN OBTAINED BY CLEAN CATCH PROCEDURE / Unknown 10/21/2024 1:24 PM CDT 10/21/2024 8:50 PM CDT Narrative Organism Antibiotic Method Susceptibility Escherichia coli, extended spectrum beta lactamase raw juice weigher FOSFOMYCIN PEEWEE (KB) Sensitive Escherichia coli, extended spectrum beta lactamase raw juice weigher AMPICILLIN PEEWEE (VITEK) Resistant Escherichia coli, extended spectrum beta lactamase raw juice weigher AMOXICILLIN/CLAVULANIC A PEEWEE (VITEK) INTERMEDIATE: Intermediate Escherichia coli, extended spectrum beta lactamase raw juice weigher AZTREONAM PEEWEE (VITEK) Resistant Escherichia coli, extended spectrum beta lactamase raw juice weigher CEFEPIME PEEWEE (VITEK) INTERMEDIATE: Intermediate Escherichia coli, extended spectrum beta lactamase raw juice weigher CEFTRIAXONE PEEWEE (VITEK) Resistant Escherichia coli, extended spectrum beta lactamase raw juice weigher CEFAZOLIN PEEWEE (VITEK) Resistant Escherichia coli, extended spectrum beta lactamase raw juice weigher CIPROFLOXACIN PEEWEE (VITEK) Resistant Escherichia coli, extended spectrum beta lactamase raw juice weigher ESBL PEEWEE (VITEK) POS: Resistant Escherichia coli, extended spectrum beta lactamase raw juice weigher ERTAPENEM PEEWEE (VITEK) Sensitive Escherichia coli, extended spectrum beta lactamase raw juice weigher NITROFURANTOIN PEEWEE (VITEK) Sensitive Escherichia coli, extended spectrum beta lactamase raw juice weigher GENTAMICIN PEEWEE (VITEK) Resistant Escherichia coli, extended spectrum beta lactamase raw juice weigher IMIPENEM PEEWEE (VITEK) Sensitive Escherichia coli, extended spectrum beta lactamase raw juice weigher LEVOFLOXACIN PEEWEE (VITEK) Resistant Escherichia coli, extended spectrum beta lactamase raw juice weigher MEROPENEM PEEWEE (VITEK) Sensitive Escherichia coli, extended spectrum beta lactamase raw juice weigher PIPRACIL/TAZO PEEWEE (VITEK) Sensitive Escherichia coli, extended spectrum beta lactamase raw juice weigher TRIMETH-SULFAMETH. PEEWEE (VITEK) Sensitive Escherichia coli, extended spectrum beta lactamase raw juice weigher TETRACYCLINE PEEWEE (VITEK) Resistant Sylvester Alexis MD MICROBIOLOGY - GENERAL ORDERABLE S Final Result [facility] [address] [place] [address], [id number] * (ABNORMAL) URINALYSIS AUTO DIP (10/21/2024) COLOR (U) YELLOW YELLOW [address], [place] TRANSPARENCY CLEAR CLEAR MG[address], [place] GLUCOSE (U) NEGATIVE NEGATIVE MG/DL MG-[address], [place] BILIRUBIN (U) NEGATIVE NEGATIVE MG-[address], [place] KETONES MG/DL (U) NEGATIVE NEGATIVE MG/DL [id number], [place] SPECIFIC GRAVITY (U) 1.015 1.001 - 1.035 MG[address], [place] BLOOD (U) MODERATE (Non Hemolyzed, Intact, About 50 rbc/uL)(A) NEGATIVE MG-[address], [place] U PH 6.5 5.0 - 9.0 MG[address], [place] PROTEIN (U) 1+ (30)(A) NEGATIVE mg/dL MG-[address], [place] UROBILINOGEN 0.2 0.2 - 1.0 EU/dL = mg/dL MG-[address], [place] NITRITES NEGATIVE NEGATIVE MG/DL MG-[address], [place] LEUKOCYTES (U) 3+ (LARGE)(A) NEGATIVE MG-[address], [place] URINE SPECIMEN OBTAINED BY CLEAN CATCH PROCEDURE / Unknown 10/21/2024 us Sylvester Alexis MD URINE ORDERABLES Final Result Performing Organization Address City/[facility]/ZIP Co de Phone Number MG-[address], [place] [address] [place] [address], [place] [phone] * HEPATITIS C ANTIBODY (02/14/2023 10:14 AM CDT) HEPATITIS C AB NON-REACTI VE NON-REACT ANTONY 02/14/2023 7:38 PM CDT [facility] Comment: ANTIBODIES TO HCV NOT DETECTED. DOES NOT EXCLUDE THE POSSIBILITY OF EXPOSURE TO HCV. 02/14/2023 10:1 4 AM CDT Sylvester Alexis MD LABORATORY Final Result Performing Organization Address City/[facility]/ZIP Co de Phone Number [facility] [address] [place] [address], [place] [phone] from Last 3 Months or Most Recently Relevant to Health Maintenance Additional Health Concerns Infection Onset Date Last Indicated ESBL - Extended Spectrum Beta-lactamase 10/22/19 25 10/21/2024 Insurance Care Teams Wardrobe Image Consultant Relationship Specialty Start Date End Date Sylvester Alexis MD [address] [address] PCP - General INTERNAL MEDICINE 02/14/23
[2024-11-22 10:22] LABS: Beta HCG Quantitative 3.94 mIU/ML
== END 2024-11-22 09:23 | disposition home or self-care (01) ==
LOC: ANHLAB 09:25
PROVIDERS: PCP Internal Medicine; Visit Provider Student in an Organized Health Care Education/Training Program
DX: N94.89 Other specified conditions associated with female genital organs and menstrual cycle (principal)
CPT/HCPCS: 36415; 84702

== ENCOUNTER 2025-03-03 09:04 | Outpatient (CLI) | payer OTHER, SELFPAY ==
[2025-03-03 09:44] LABS: Hematocrit 40.3 % (37.0-47.0); Hemoglobin 13.4 g/dL (12.0-15.0); Mean Corpuscular HGB Conc 33.3 g/dl (32-36); Mean Corpuscular Hemoglobin 29.3 pg (26-34); Mean Corpuscular Volume 88.2 fl (80-100); Platelet Count Result 315 k/mm3 (150-375); Red Blood Count 4.57 M/mm3 (4.2-5.4); White Blood Count 8.9 K/mm3 (4.5-10.0)
--- OUTSIDE RECORDS SUMMARY | 2025-03-03 09:57 | XMS_ITS | Encounter Summary ---
Author Organization [facility] Address [address] [place] [address] Care Team Providers Care Channel Man Name Role Phone Sylvester Alexis MD Primary Care Provider [phone] Reason for Visit * Reason Onset Date Comments Appointment Request 10/16/2024 Encounter Details Date Type Department Care Team (Late st Contact Info) Description 10/16/2024 Brainceuticalshart Message Enc [facility] Multispecialty Care - [place] [address] [place] [address] [address] [place] [address] [place] [address] [place] [address] [address] [place] [address] Possible UTI Social History Tobacco [...] st Contact Info) Description 04/21/2025 7:00 AM WARD ASSISTANT Office Visit [facility] Multispecialty [facility] - [place] [address] [address] [place] [address] Sylvester Alexis MD [address] [place] [address] documented as of this encounter Visit Diagnoses Not on filedocumented in this encounter Additional Health Concerns Infection Onset Date Last Indicated Resolved Time ESBL - Extended Spectrum Beta-lactamase 10/21/2024 0 10/21/2024 Assessment Noted Time PHQ-9 Depression Total Score: 1 04/15/20 24 9:39 AM WARD ASSISTANT documented as of this encounter Care Teams Channel Man Relationship Specialty Start Date End Date Sylvester Alexis MD [address] [place] [address] PCP - General INTERNAL MEDICINE 02/14/23 documented as of this encounter
--- OUTSIDE RECORDS SUMMARY | 2025-03-03 09:57 | XMS_ITS | Clinical Summary ---
Author Organization [facility] Address [address] [place] [address] Care Team Providers Care Graffiti Cleaner Name Role Phone Unavailable Primary Care Provider Unavailabl e Source Comments [facility],non-owned Affiliates and Associated Physician Practices is amultiple site organization consisting of ambulatory clinics and hospital sitesin [place], [place], [place] and [place]. This disclosure is being madepursuant to the Care Everywhere program and may not contain all information available regarding this patient. Last updated 18.[facility] Allergies Active Allergy Reactions Criticality Noted Date [...] and heating? Not hard at all 10/01/2023 [facility] [place] of Occupat ional Health - Occupational Stress [...] place to sleep or slept in a usp (including now)? No 10/01/2023 [place] Depression Scale Answer Date Recorded [place] Depression Scale Total 2 10/01/2023 The thought of harming myself has occurred to me . Never 10/01/2023 Comments No Sex and Gender Information Value Date Recorded Sex Assigned at Not on file Legal Sex Female 9:00 AM PHYSIOTHERAPY AIDE Gender Identity Not on file Sexual Orientation [...] 19+ 3-dose series) 2014 PAP SMEAR 02/13/2016 HPV VACCINE (1 - 3-dose SCDM series) 2022 DEPRESSION SCREENING 05/21/2024 COVID-19 VACCINE (1 - 2023-2 5 season) 2025 INFLUENZA VACCINE (#1) 2025 04/24/2023 DTAP/TDAP/TD VACCINES (2 - T d or [...] patient's age to complete this topic [place] [address] [facility] Advance Directives * Full Code (Latest Code Status on File) Date Activated Date Inactivated Comments 09/05/2023 1:25 PM 09/09/2023 4:15 PM * Full Code Date Activated Date Inactivated Comments 08/16/2023 7:12 PM 09/05/2023 1:25 PM
--- OUTSIDE RECORDS SUMMARY | 2025-03-03 09:57 | XMS_ITS | Clinical Summary ---
Author Organization [facility] Address [address] [place] [id number] Care Team Providers Care Physician General Internal Medicine Name Role Phone Sylvester Alexis MD Primary Care Provider [phone] Allergies Active Allergy Reactions Criticality Noted Date Comments Penicillins Hives 05/08/2005 Medications loratadine (CLARITIN) 10 MG tablet Take 1 tablet (10 mg total) by mouth daily as needed for Allergies. Active NIFEdipine ER (ADALAT CC) 60 MG 24 hr tabletIndications :Chronic hypertension in obstetric context in first trimester (HHS/HCC) Take 1 tablet (60 mg total) by mouth daily. 90 tablet 1 03/16/2023 Active 28-0.8 MG tablet Take 1 tablet by mouth daily. 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 [facility] [address] [place] [address] [address] [place] [address] Sylvester Alexis MD [address] [place] [id number] Health Maintenance Due Date Last Done Comments Cervical Cancer Screening Pa p Smear (Age 30 to 64) Every 3 Years 1995 Hepatitis B Vaccines (1 of 3 - 19+ 3-dose series) 2014 HPV Vaccines (1 - 3-dose SCD M series) 2022 PHQ-2 (Physician [place]) 05/21/2024 04/15/2024 COVID-19 Vaccine ( - 2023-2 5 season) 2025 Cervical Cancer Screening Pa p with HPV Testing (Age 30 to 64) Every 5 Years 2025 Cervical Cancer Screening wi th HPV 2025 Influenza Adult (#1) 2025 04/15/2024, 04/24/2023 Annual Physical 04/15/2025 04/15/2024, 02/14/2023 DTaP, Tdap and Td Vaccines ( 2 - Td or Tdap) 08/21/2033 08/22/2023 Hepatitis C Completed 02/14/2023 Meningococcal B Vaccine Aged Out No l [...] Procedure Name Priority Date/Time Associated Diagnosis Comments HEPATITIS C ANTIBODY Routine 02/14/2023 10:14 AM CDT Annual physical exam General medical exam Establishing care with new doctor, encounter for Encounter for hepatitis C screening test for low risk patient from Last 3 Months or Most Recently Relevant to Health Maintenance Results * HEPATITIS C ANTIBODY (02/14/2023 10:14 AM CDT) HEPATITIS C AB NON-REACTI VE NON-REACT ANTONY 02/14/2023 7:38 PM CDT [facility] Comment: ANTIBODIES TO HCV NOT DETECTED. DOES NOT EXCLUDE THE POSSIBILITY OF EXPOSURE TO HCV. 02/14/2023 10:1 4 AM CDT Sylvester Alexis MD LABORATORY Final Result [facility] [address] [place] [address], [id number] from Last 3 Months or Most Recently Relevant to Health Maintenance Additional Health Concerns Infection Onset Date Last Indicated ESBL - Extended Spectrum Beta-lactamase 10/22/19 25 10/21/2024 Insurance [facility] Care Teams Physician General Internal Medicine Relationship Specialty Start Date End Date Sylvester Alexis MD [address] [facility] [address] [place] [address] PCP - General INTERNAL MEDICINE 02/14/23
[2025-03-03 10:31] LABS: Syphilis IgG/IgM Antibody Non-Reactive (Nonreactive)
[2025-03-03 10:34] LABS: Hepatitis B Surface Antigen Negative (Negative)
[2025-03-03 10:48] LABS: HIV 1/2 Ab P24 Ag Result Negative (Negative)
[2025-03-03 10:52] LABS: Beta HCG Quantitative 46673.00 mIU/ML
[2025-03-04 08:09] LABS: Cytomegalovirus (CMV) Ab, IgG <0.60 U/mL (0.00-0.59)
[2025-03-04 10:08] LABS: Varicella-Zoster Ab, IgG Reactive (Non Reactive)
[2025-03-06 11:09] LABS: Parvovirus B19, IgG 3.7 index (0.0-0.8); Parvovirus B19, IgM 0.1 index (0.0-0.8)
== END 2025-03-03 09:05 | disposition home or self-care (01) ==
LOC: ANHLAB 09:06
PROVIDERS: PCP Internal Medicine; Visit Provider Student in an Organized Health Care Education/Training Program
DX: N91.2 Amenorrhea, unspecified (principal)
CPT/HCPCS: 36415; 84702; 85027; 86593; 86644; 86703; 86747; 86762; 86787; 86850; 86900; 86901; 87086; 87340; G0432